=== PATIENT | female | born 1990 | race Caucasian/White ===

== ENCOUNTER 2023-05-28 05:14 | Inpatient (IN) | payer OTHER, SELFPAY ==
[2023-05-28 05:45] VITALS: BP 138/88; BMI 41.9
[2023-05-28] MEDS: LR 1000 IV (06:05)
[2023-05-28 06:24] LABS: Hematocrit 34.6 % (37.0-47.0); Hemoglobin 11.8 g/dL (12.0-16.0); Mean Corp Hgb Conc. 34.1 g/dL (33.0-37.0); Mean Corpuscular Hgb 30.7 pg (27.0-31.0); Mean Corpuscular Volume 90.1 fL (81.0-99.0); Mean Platelet Volume 10.2 fL (7.4-10.4); Platelet Count 234 10^3/uL (130-400); Red Blood Cell Count 3.84 10^6/uL (4.20-5.40); Red Cell Dist. Width 14.3 % (11.5-14.5); White Blood Cell Count 9.1 10^3/uL (4.8-10.8)
[2023-05-28] MEDS: CLEOCIN 50 IV (07:17)
[2023-05-28] MEDS: BICITRA 30 ML PO (07:17)
[2023-05-28] MEDS: TYLENOL 1000 MG PO (07:18)
[2023-05-28] MEDS: PITOCIN 30 UNITS/NSS 500 ML IV (09:00)
[2023-05-28] MEDS: TORADOL 15 MG IV ×2 (11:46→17:39)
[2023-05-28] MEDS: GLUCOPHAGE 500 MG PO (18:35)
[2023-05-29] MEDS: TORADOL 15 MG IV ×2 (00:04→06:12)
[2023-05-29 05:32] LABS: Hematocrit 31.1 % (37.0-47.0); Hemoglobin 10.7 g/dL (12.0-16.0); Mean Corp Hgb Conc. 34.4 g/dL (33.0-37.0); Mean Corpuscular Hgb 30.4 pg (27.0-31.0); Mean Corpuscular Volume 88.4 fL (81.0-99.0); Platelet Count 230 10^3/uL (130-400); Red Blood Cell Count 3.52 10^6/uL (4.20-5.40); Red Cell Dist. Width 14.2 % (11.5-14.5); White Blood Cell Count 14.1 10^3/uL (4.8-10.8)
[2023-05-29] MEDS: SYNTHROID 50 MCG PO (06:13)
--- NOTE | 2023-05-29 08:52 | W.PN.ANS.POP ---
Anesthesia Post Operative
- Anesthesia Post Op Note
Vital Signs Stable-See Nursing Note: Yes
Airway Patent: Yes
Adequate Pain Control: Yes
Change in Mental Status: No
Current Postoperative Nausea & Vomiting: No
Anesthesia Complications: No
General Anesthetic Recall: No
Unplanned Admission: No
Post Op Hydration Adequate: Yes
[2023-05-29] MEDS: SENOKOT-S 1 TABLET PO (09:02)
[2023-05-29] MEDS: GLUCOPHAGE 500 MG PO ×3 (09:02→20:20)
[2023-05-29] MEDS: PRENATAL PLUS 1 TABLET PO (09:02)
[2023-05-29] MEDS: FEOSOL 325 MG PO (09:02)
[2023-05-29] MEDS: ZYRTEC 10 MG PO (14:18)
[2023-05-29] MEDS: MOTRIN 600 MG PO (14:18)
[2023-05-29 16:43] LABS: Syphilis/T. pallidum Ab Reflex Negative (Negative)
[2023-05-30] MEDS: TRANDATE 100 MG PO ×3 (00:48→09:00)
[2023-05-30] MEDS: SYNTHROID 50 MCG PO (06:30)
[2023-05-30] MEDS: FEOSOL 325 MG PO (08:11)
[2023-05-30] MEDS: ZYRTEC PO (08:12)
[2023-05-30] MEDS: PRENATAL PLUS 1 TABLET PO (08:12)
[2023-05-30] MEDS: GLUCOPHAGE 500 MG PO ×3 (09:05→21:56)
[2023-05-30 09:25] LABS: Hematocrit 31.3 % (37.0-47.0); Hemoglobin 10.8 g/dL (12.0-16.0); Mean Corp Hgb Conc. 34.5 g/dL (33.0-37.0); Mean Corpuscular Hgb 30.6 pg (27.0-31.0); Mean Corpuscular Volume 88.7 fL (81.0-99.0); Mean Platelet Volume 9.7 fL (7.4-10.4); Platelet Count 259 10^3/uL (130-400); Red Blood Cell Count 3.53 10^6/uL (4.20-5.40); Red Cell Dist. Width 14.4 % (11.5-14.5); White Blood Cell Count 10.1 10^3/uL (4.8-10.8)
[2023-05-30 09:46] LABS: ALT (SGPT) 24 U/L (0-35); AST (SGOT) 43 U/L (14-36); Albumin 3.1 g/dl (3.5-5.0); Alkaline Phosphatase 95 U/L (38-126); Blood Urea Nitrogen 16 mg/dl (7-17); Calcium 10.3 mg/dl (8.4-10.2); Carbon Dioxide 23 mmol/L (22-30); Chloride 105 mmol/L (98-107); Estimated Creatinine Clearance 117 ml/min; Glucose 102 mg/dl (70-99); Sodium 138 mmol/L (135-145); Total Bilirubin 0.8 mg/dl (0.2-1.3); Total Protein 5.8 g/dl (6.3-8.2); eGFR > 60.00
[2023-05-30] MEDS: TRANDATE 300 MG PO (17:04)
[2023-05-31] MEDS: PROCARDIA XL (EXTENDED RELEASE) 30 MG PO ×2 (00:14→07:37)
[2023-05-31 05:36] LABS: Hemoglobin 11.2 g/dL (12.0-16.0); Mean Corpuscular Hgb 30.7 pg (27.0-31.0); Mean Corpuscular Volume 87.7 fL (81.0-99.0); Mean Platelet Volume 9.8 fL (7.4-10.4); Platelet Count 281 10^3/uL (130-400); Red Blood Cell Count 3.65 10^6/uL (4.20-5.40); Red Cell Dist. Width 14.5 % (11.5-14.5); White Blood Cell Count 10.7 10^3/uL (4.8-10.8)
[2023-05-31 06:03] LABS: ALT (SGPT) 24 U/L (0-35); AST (SGOT) 38 U/L (14-36); Albumin 3.3 g/dl (3.5-5.0); Alkaline Phosphatase 101 U/L (38-126); Blood Urea Nitrogen 17 mg/dl (7-17); Calcium 10.1 mg/dl (8.4-10.2); Carbon Dioxide 24 mmol/L (22-30); Chloride 104 mmol/L (98-107); Estimated Creatinine Clearance 117 ml/min; Glucose 85 mg/dl (70-99); Potassium 3.8 mmol/L (3.5-5.1); Sodium 138 mmol/L (135-145); Total Bilirubin 0.8 mg/dl (0.2-1.3); Total Protein 6.1 g/dl (6.3-8.2); eGFR > 60.00
[2023-05-31] MEDS: SYNTHROID 50 MCG PO (06:21)
[2023-05-31] MEDS: PRENATAL PLUS 1 TABLET PO (07:33)
[2023-05-31] MEDS: FEOSOL 325 MG PO (07:33)
[2023-05-31] MEDS: ZYRTEC PO (07:34)
[2023-05-31] MEDS: GLUCOPHAGE 500 MG PO ×2 (08:46→13:26)
== END 2023-05-31 16:34 | disposition home or self-care (01) | DRG 785 ==
LOC: LDRP 05:14
PROVIDERS: Obstetrics & Gynecology; ADMITTING PHYSICIAN Obstetrics & Gynecology
PROC: 0UT70ZZ Resection of Bilateral Fallopian Tubes, Open Approach (ICD-10-PCS; 2023-05-28)
PROC: 0UT20ZZ Resection of Bilateral Ovaries, Open Approach (ICD-10-PCS; 2023-05-28)
PROC: 10D00Z1 Extraction of Products of Conception, Low, Open Approach (ICD-10-PCS; 2023-05-28)
DX: O34.211 Maternal care for low transverse scar from previous cesarean delivery (principal); O99.214 Obesity complicating childbirth; O13.4 Gestational [pregnancy-induced] hypertension without significant proteinuria, complicating childbirth; Z3A.39 39 weeks gestation of pregnancy; Z37.0 Single live birth; N85.8 Other specified noninflammatory disorders of uterus; O99.284 Endocrine, nutritional and metabolic diseases complicating childbirth; E28.2 Polycystic ovarian syndrome; Z30.2 Encounter for sterilization; E03.9 Hypothyroidism, unspecified
CPT/HCPCS: 88302; 58605; 80053; 85027; 86780; 86850; 86870; 86900; 86901